=== PATIENT | female | born 1995 | race Two or more races ===

== ENCOUNTER 2019-09-03 01:39 | Emergency (ER) | payer SELFPAY ==
[~2019-09-03] VITALS: Ht 160 cm; Wt 44.0 kg
[2019-09-03 01:57] VITALS: BP 121/87
== END 2019-09-03 05:28 | disposition left against medical advice (07) ==
LOC: ER 04:12
DX: Z53.21 Procedure and treatment not carried out due to patient leaving prior to being seen by health care provider (principal)